=== PATIENT | male | born 1970 | race Hispanic/Latino ===

== ENCOUNTER 2017-11-29 17:15 | Emergency (ER) | payer SELFPAY ==
[~2017-11-29] VITALS: Ht 162.6 cm; Wt 77.0 kg
[~2017-11-29 17:15] MED LIST: ATIVAN0.5 MG PO; DOXYCYCL HYC100 MG PO; FLEXERIL OR; FLEXERIL10 MG PO; FLEXERIL5 MG OR; LIBRIUM25 MG OR; LIBRIUM25 MG PO; LORTAB 10 OR; LORTAB 5 OR; NAPROSYN500 MG PO; NO; NO HOME MEDS; PHENERGAN25 MG/TAB PO; PREVACID30 M2 PO; THIAMINE HCL100 MG PO; TRAMADOL HCL50 MG PO; ULTRAM50 M1 OR; ULTRAM50 M1 PO; ULTRAM50 MG OR; ZOFRAN ODT4 MG PO; ZOFRAN4 MG/TAB PO
[2017-11-29] MEDS ORDERED: TORADOL PO (18:34)
[2017-11-29] MEDS ORDERED: MEDDOSEPAK PO (18:34)
[2017-11-29 18:40] VITALS: BP 141/89
== END 2017-11-29 18:40 | disposition home or self-care (01) | DRG 554 ==
LOC: ED 17:15
DX: M17.11 Unilateral primary osteoarthritis, right knee (principal); M25.561 Pain in right knee

== ENCOUNTER 2018-01-11 07:46 | Emergency (ER) | payer SELFPAY ==
[~2018-01-11] VITALS: Ht 162.6 cm; Wt 75.0 kg
[~2018-01-11 07:46] MED LIST changes: +MEDDOSEPAK PO; +TORADOL PO
[2018-01-11 08:33] LABS: HEMATOCRIT 41.5 % (39.0-50.0); HEMOGLOBIN 15.6 g/dl (14.0-18.0); IMMATURE GRANULOCYTES 0.4 % (0.0-5.0); MEAN CELL VOLUME 83.5 fL CALC (80.0-100.0); MEAN CORPUSCULAR HGB 31.4 pG CALC (26.0-32.0); MEAN CORPUSCULAR HGB CONC 37.6 g/L CALC (32.0-36.0); NEUT# 3.95 thou/uL (1.82-7.42); RED BLOOD COUNT 4.97 mill/uL (4.70-6.10); RED CELL DISTRI WIDTH 12.1 % (11.5-15.5)
[2018-01-11 08:37] LABS: BARBITURATES NEGATIVE (NEGATIVE); COCAINE NEGATIVE (NEGATIVE); METHADONE NEGATIVE (NEGATIVE); TETRAHYDROCANNABIONOL NEGATIVE (NEGATIVE); TRICYLIC ANTIDEPRESSANTS NEGATIVE (NEGATIVE)
[2018-01-11 08:38] LABS: OXCYCODONE NEGATIVE (NEGATIVE)
[2018-01-11] MEDS ORDERED: MEDDOSEPAK PO (08:56)
[2018-01-11] MEDS ORDERED: TORADOL PO (08:56)
[2018-01-11] MEDS ORDERED: ULTRAM50 M1 PO (08:56)
[2018-01-11 09:15] VITALS: BP 151/77
== END 2018-01-11 09:16 | disposition home or self-care (01) | DRG 556 ==
LOC: ED 07:46
PROVIDERS: Emergency Medicine
DX: M25.561 Pain in right knee (principal); Z72.89 Other problems related to lifestyle

== ENCOUNTER 2018-01-28 17:08 | Emergency (ER) | payer SELFPAY ==
[~2018-01-28] VITALS: Ht 162.6 cm; Wt 80.0 kg
[2018-01-28 18:39] VITALS: BP 126/98
[2018-01-28] MEDS ORDERED: NAPROSYN500 MG PO (18:46)
== END 2018-01-28 18:59 | disposition home or self-care (01) | DRG 563 ==
LOC: ED 17:08
DX: S83.91XA Sprain of unspecified site of right knee, initial encounter (principal); M25.561 Pain in right knee